=== PATIENT | female | born 1960 | race Caucasian/White ===

== ENCOUNTER 2018-04-13 05:49 | Inpatient (IN) | payer OTHER ==
[2018-04-13] MEDS ORDERED: LIDOCAINE 2% (SDV) 5 ML INJ (07:28)
[2018-04-13] MEDS ORDERED: MEPERIDINE 100 MG INJ (07:28)
[2018-04-13] MEDS ORDERED: GLYCOPYRROLATE 0.4 MG INJ ×2 (07:28→07:56)
[2018-04-13] MEDS ORDERED: PROPOFOL 20 ML (07:28)
[2018-04-13] MEDS ORDERED: NEOSTIGMINE 3 MG/3 ML SYRINGE ×2 (07:28→07:57)
[2018-04-13] MEDS ORDERED: SUCCINYLCHOLINE CHLORIDE 100 MG/5 ML SYG IV (07:28)
[2018-04-13] MEDS ORDERED: ROCURONIUM 50 MG INJ (07:28)
[2018-04-13] MEDS ORDERED: CEFAZOLIN 1 GM INJ (07:56)
[2018-04-13] MEDS ORDERED: ONDANSETRON 4 MG INJ (07:57)
[2018-04-13] MEDS ORDERED: METOCLOPRAMIDE 10 MG INJ (07:58)
[2018-04-13] MEDS ORDERED: NALOXONE (0.4 MG/ML) INJ IV (08:30)
[2018-04-13] MEDS ORDERED: DIPHENHYDRAMINE 50 MG INJ IV (08:30)
[2018-04-13] MEDS ORDERED: OXYCODONE/ACETAMINOPHEN (5/325) TAB PO ×2 (08:30)
[2018-04-13] MEDS ORDERED: KETOROLAC 30 MG INJ IV (08:30)
[2018-04-13] MEDS ORDERED: ONDANSETRON 4 MG INJ IV ×2 (08:30→10:30)
[2018-04-13] MEDS: HYDROmorphONE 0.2 MG/ML PCA IV (09:27)
[2018-04-13] MEDS ORDERED: FENTAnyl 50 MCG/ML VIAL (10:25)
[2018-04-13] MEDS ORDERED: FENTAnyl 50 MCG/ML VIAL IV (10:30)
[2018-04-13] MEDS: FENTAnyl 50 MCG/ML VIAL IV (10:51)
[2018-04-13] MEDS: LACTATED RINGER'S 1,000 ML IV ×3 (13:00→20:29)
[2018-04-14] MEDS: LACTATED RINGER'S 1,000 ML IV ×3 (03:27→20:19)
[2018-04-14 05:11] LABS: ADD MAN DIFF? NO
[2018-04-14 05:21] LABS: WHITE BLOOD COUNT 9.3 10^3/ul (4.8-10.8)
[2018-04-14 05:21] LABS: BASOPHIL # 0.1 10^3/ul (0.0-0.1); BASOPHILS % 0.5 % (0.0-2.0); EOSINOPHILS # 0.1 10^3/ul (0.0-0.5); EOSINOPHILS % 0.6 % (0.0-7.0); HEMATOCRIT 32.7 % (37.0-47.0); HEMOGLOBIN 10.6 g/dl (12.0-16.0); LYMPHOCYTES # 1.4 10^3/ul (0.8-2.9); LYMPHOCYTES % 15.4 % (15.0-51.0); MEAN CORPUSCULAR HEMOGLOBIN 30.8 pg (29.0-33.0); MEAN CORPUSCULAR HGB CONC 32.4 g/dl (32.0-37.0); MEAN CORPUSCULAR VOLUME 95.1 fl (82.0-101.0); MONOCYTE # 0.8 10^3/ul (0.3-0.9); MONOCYTES % 8.5 % (0.0-11.0); NEUTROPHILS % 74.7 % (39.0-77.0); PLATELET COUNT 243 10^3/UL (140-415); RED BLOOD COUNT 3.44 10^6/ul (4.20-5.40); RED CELL DISTRIBUTION WIDTH 12.4 % (11.5-14.5)
[2018-04-14 05:50] LABS: ALANINE AMINOTRANSFERASE 25 IU/L (13-69); ALBUMIN 3.3 g/dl (3.3-4.9); ALBUMIN/GLOBULIN RATIO 1.13; ALKALINE PHOSPHATASE 55 IU/L (42-121); ANION GAP 8 (5-13); ASPARTATE AMINO TRANSFERASE 21 IU/L (15-46); BILIRUBIN,INDIRECT 0.4 mg/dl (0-1.1); BILIRUBIN,TOTAL 0.4 mg/dl (0.2-1.3); BLOOD UREA NITROGEN 7 mg/dl (7-20); CALCIUM 8.3 mg/dl (8.4-10.2); CARBON DIOXIDE 25 mmol/L (21-31); CHLORIDE 104 mmol/L (97-110); CREATININE 0.73 mg/dl (0.44-1.00); Estimated GFR > 60 mL/min (>60); GLUCOSE 101 mg/dl (70-220); POTASSIUM 3.9 mmol/L (3.5-5.1); SODIUM 137 mmol/L (135-144); TOTAL PROTEIN 6.2 g/dl (6.1-8.1)
[2018-04-14] MEDS: MAGNESIUM HYDROXIDE 30ML CUP PO ×3 (06:00→18:29)
[2018-04-14] MEDS: BISACODYL 10 MG SUPP PR ×3 (06:15→18:29)
[2018-04-14] MEDS ORDERED: HYDROCODONE/APAP (5/325) TAB PO ×2 (09:30)
[2018-04-14] MEDS: ONDANSETRON 4 MG INJ IV (12:28)
[2018-04-15 06:18] LABS: ADD MAN DIFF? NO
[2018-04-15 06:33] LABS: BASOPHIL # 0.1 10^3/ul (0.0-0.1); BASOPHILS % 0.4 % (0.0-2.0); EOSINOPHILS # 0.1 10^3/ul (0.0-0.5); EOSINOPHILS % 0.9 % (0.0-7.0); HEMATOCRIT 32.2 % (37.0-47.0); HEMOGLOBIN 10.6 g/dl (12.0-16.0); LYMPHOCYTES # 2.2 10^3/ul (0.8-2.9); LYMPHOCYTES % 17.4 % (15.0-51.0); MEAN CORPUSCULAR HEMOGLOBIN 30.8 pg (29.0-33.0); MEAN CORPUSCULAR HGB CONC 32.9 g/dl (32.0-37.0); MEAN CORPUSCULAR VOLUME 93.6 fl (82.0-101.0); MEAN PLATELET VOLUME 10.6 fl (7.4-10.4); MONOCYTE # 0.9 10^3/ul (0.3-0.9); MONOCYTES % 7.2 % (0.0-11.0); NEUTROPHIL # 9.3 10^3/ul (1.6-7.5); NEUTROPHILS % 73.7 % (39.0-77.0); PLATELET COUNT 267 10^3/UL (140-415); RED BLOOD COUNT 3.44 10^6/ul (4.20-5.40); RED CELL DISTRIBUTION WIDTH 12.3 % (11.5-14.5)
[2018-04-15 06:33] LABS: WHITE BLOOD COUNT 12.5 10^3/ul (4.8-10.8)
[2018-04-15] MEDS: LACTATED RINGER'S 1,000 ML IV (09:30)
[2018-04-15] MEDS: ONDANSETRON 4 MG INJ IV (11:53)
[2018-04-15] MEDS: IBUPROFEN 800 MG TAB PO (12:09)
== END 2018-04-15 12:48 | disposition home or self-care (01) | DRG 743 ==
LOC: REC 05:49 → MS1 11:22
PROVIDERS: Obstetrics & Gynecology
PROC: 0UT90ZZ Resection of Uterus, Open Approach (ICD-10-PCS; principal; 2018-04-13 07:24)
PROC: 0UT70ZZ Resection of Bilateral Fallopian Tubes, Open Approach (ICD-10-PCS; 2018-04-13 07:24)
PROC: 0UT20ZZ Resection of Bilateral Ovaries, Open Approach (ICD-10-PCS; 2018-04-13 07:24)
PROC: 0UN Female Reproductive System, Release (ICD-10-PCS; 2018-04-13 07:24)
PROC: 0USG0ZZ Reposition Vagina, Open Approach (ICD-10-PCS; 2018-04-13 07:24)
DX: N81.2 Incomplete uterovaginal prolapse (principal); N80.0 Endometriosis of uterus; R10.2 Pelvic and perineal pain; N73.6 Female pelvic peritoneal adhesions (postinfective)
CPT/HCPCS: 80053; 84702; 85025; 86850; 86900; 86901; 87086; 88305